=== PATIENT | female | born 1945 ===

== ENCOUNTER → 2023-12-12 | Outpatient (CLI) | payer BC, MEDICARE | LOC: M WUC 13:18 | PROVIDERS: ATTEND Physician Assistant | DX: S60.212A Contusion of left wrist, initial encounter (principal); S52.612A Displaced fracture of left ulna styloid process, initial encounter for closed fracture; W01.10XA Fall on same level from slipping, tripping and stumbling with subsequent striking against unspecified object, initial encounter; Y93.9 Activity, unspecified; Y92.9 Unspecified place or not applicable ==